=== PATIENT | male | born 1980 | race Caucasian/White ===

== ENCOUNTER 2018-08-18 13:13 | Emergency (ER) | payer OTHER, MEDICAID, SELFPAY ==
[2018-08-18 13:22] VITALS: BP 136/81; PULSE 90; RESP 16; TEMP 36.6; O2SAT 99; BMI 19.0
--- NOTE | 2018-08-18 14:16 | ED_ITS ---
HPI - Dental/Oral <Oly Caicedo PA-C - Last Filed: 08/18/18 16:32> General Chief complaint: Dental/Oral Stated complaint: lt sided jaw swelling Time Seen by Provider: 08/18/18 13:43 Source: patient Mode of arrival: ambulatory Limitations: no limitations History of Present Illness HPI Narrative: this 38-year-old male comes to ED secondary to concern for dental infection. He states that he has had multiple broken teeth, and this tooth that is hurting him on the left side broke months to a year ago. He has had some pain since, but pain has been worse since Monday, and today he woke up with sensation of swelling around the area and more pain. He has not had any fever. He has not had any drainage from around the gums. He has not had any recent upper respiratory symptoms, sinus pain, or earache. He states he is healthy aside from the dental problems, does not have a PCP or dentist Related Data Home Medications Medication Instructions Recorded Confirmed ibuprofen 800 mg PO TID PRN 08/18/18 08/18/18 Previous Rx's Medication Instructions Recorded amoxicillin-pot clavulanate 1 tab PO Q12H #14 tab 08/18/18 [Augmentin] Allergies Allergy/AdvReac Type Severity Reaction Status Date / Time No Known Drug Allergies Allergy Verified 08/18/18 13:27 Review of Systems <Oly Caicedo PA-C - Last Filed: 08/18/18 16:32> Review of Systems ROS Unobtainable: All systems reviewed & are unremarkable except as noted in HPI and below PFSH <Oly Caicedo PA-C - Last Filed: 08/18/18 16:32> Medical History Healthy adult male (Chronic) No pertinent family history (Chronic) Surgical History No pertinent past surgical history (Chronic) Social History Smoking Status: Current every day smoker Social History Smoking Status: Current every day smoker Exam <Oly Caicedo PA-C - Last Filed: 08/18/18 16:32> Narrative Exam Narrative: GENERAL APPEARANCE: Patient sitting comfortably, in no distress. HEAD: No sinus TTP. EYES: PERRL, EOMI. EARS: Normal auditory canals, TMS intact with normal light reflexes. ORAL CAVITY: poor dentition, multiple caries and broken teeth. The left lower bicuspid is fractured, and there appears to be a little bit of exposed pulp. Labial portion of the gum line along this is erythematous, moderately edematous, no drainage. No circumscribed masses THROAT: Clear. NECK/THYROID: Neck supple, full range of motion, no cervical lymphadenopathy. LUNGS: Clear to auscultation bilaterally, no cough on exam. HEART: RRR without murmur, nl S1, S2, no S3 or S4. Initial Vital Signs Initial Vital Signs: Vital Signs Temperature 97.9 F 08/18/18 13:22 Pulse Rate 90 08/18/18 13:22 Respiratory Rate 16 08/18/18 13:22 Blood Pressure 136/81 08/18/18 13:22 Pulse Oximetry 99 08/18/18 13:22 <Froilan Preciado MD - Last Filed: 08/19/18 08:01> Initial Vital Signs Initial Vital Signs: Vital Signs Temperature 97.9 F 08/18/18 13:22 Pulse Rate 90 08/18/18 13:22 Respiratory Rate 16 08/18/18 13:22 Blood Pressure 136/81 08/18/18 13:22 Pulse Oximetry 99 08/18/18 13:22 Course <Oly Caicedo PA-C - Last Filed: 08/18/18 16:32> Vital Signs - 8 hr 08/18/18 13:22 08/18/18 14:57 Temperature 97.9 F Pulse Rate 90 79 Respiratory Rate 16 16 Blood Pressure 136/81 134/74 Pulse Oximetry 99 99 <Froilan Preciado MD - Last Filed: 08/19/18 08:01> Vital Signs - 8 hr 08/18/18 13:22 08/18/18 14:57 Temperature 97.9 F Pulse Rate 90 79 Respiratory Rate 16 16 Blood Pressure 136/81 134/74 Pulse Oximetry 99 99 Discharge Plan Departure Patient Disposition: Home Clinical Impression: Dental infection, Dental caries Discharge Date/Time: 08/18/18 14:57 Interventions: ED Discharge Assessment Last Done: 08/18/18 14:57 Instructions: DI for Tooth Abscess, DI for Dental Pain Activity Restrictions/Additional Instructions: you do not appear to have an abscess but you do have inflammation and probably an infection around your sore tooth. You also may have some pain due to the break in the tooth and exposure of the nerve. 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 Continue your ibuprofen 800 mg every 8 hr and you can also add Tylenol as needed. Warm saltwater rinses might be helpful as well. In addition, you may wish to get some Orajel or similar topical anesthetic [id number] to help with pain. Please return as we talked about if you have any acutely worsening symptoms over the weekend. Please call [facility] on Monday and let them know you were seen in the emergency room with fractured and infected teeth and need to be seen next week for follow up Prescriptions: New amoxicillin-pot clavulanate [Augmentin] 875-125 mg tablet 1 tab PO Q12H Qty: 14 RF: 0 No Action ibuprofen 800 mg Tablet 800 mg PO TID PRN (Reason: Pain, Mild) RF: 0 Referrals: [facility], [place] [Other] <Froilan Preciado MD - Last Filed: 08/19/18 08:01> Cosign ED Attending Costeeature Attestation: I was present in the ER at the time of this patient's care. I was available for verbal consultation or to evaluate the patient directly if needed. I agree with the assessment and treatment plan.
[2018-08-18 14:57] VITALS: BP 134/74; PULSE 79; RESP 16; O2SAT 99
== END 2018-08-18 14:57 | disposition home or self-care (01) ==
PROVIDERS: Emergency Provider Internal Medicine
DX: K04.7 Periapical abscess without sinus (principal); K02.9 Dental caries, unspecified
CPT/HCPCS: 99282